=== PATIENT | female | born 1975 | race Caucasian/White ===

== ENCOUNTER 2022-07-05 09:45 | Outpatient (REF) | payer OTHER, SELFPAY ==
--- NOTE | ~2022-07-05 | US_ITS ---
EXAMINATION: US VENOUS ULTRASOUND WITH DOPPLER LOWER EXTREMITY, LEFT CLINICAL INFORMATION: Left leg pain. COMPARISON: None TECHNIQUE: Ultrasound of the deep veins is performed from the hip to the calf with compression sonography and color and pulse Doppler assessment. Spectral analysis with color-flow imaging is performed. FINDINGS: There is normal venous compression and respiratory variation and augmented flow. The visualized common femoral vein, superficial femoral vein, profunda femoral vein, popliteal vein, and the trifurcation region shows no evidence of deep venous thrombosis. No left popliteal cyst. The subcutaneous soft tissues are unremarkable. If the patient's symptoms persist, followup ultrasound in 5 days 7 days might be of value to exclude proximal propagation from a non-visualized calf vein. US/US venous duplex LE LT IMPRESSION: No evidence for deep venous thrombosis in the visualized veins of the left lower extremity.
[2022-07-05 10:42] LABS: MANUAL DIFF FLAG NO
[2022-07-05 11:47] LABS: Alanine Aminotransferase 10 U/L (0-31); Albumin Level 4.4 g/dL (3.5-5.0); Alkaline Phosphatase 62 U/L (39-117); Anion Gap 15 (12-20); Aspartate Amino Transferase 15 U/L (5-31); Basophils Absolute Auto 0.1 X10*3/uL (0.0-0.2); Basophils Percent Auto 0.6 % (0-2); Bilirubin Total 1.4 mg/dL (0.0-1.0); Blood Urea Nitrogen 12 mg/dL (9-16); Calcium 9.2 mg/dL (8.4-10.2); Carbon Dioxide 26 mmol/L (22-29); Chloride 104 mmol/L (96-108); Cholesterol 231 mg/dL; Eosinophils Absolute Auto 0.1 X10*3/uL (0.0-0.4); Estimated Glomerular Filt Rate > 60; Glucose Fasting 88 mg/dL (60-99); HDL Cholesterol 91 mg/dL; Hematocrit 42.2 % (37.0-47.0); Hemoglobin 13.8 g/dl (12.0-16.0); Imm Gran Abs Auto 0.01 X10*3/uL (0.00-0.03); Imm Gran Pct Auto 0.1 % (0.0-0.4); LDL Cholesterol Calculated 126 mg/dl; Lymphocytes Absolute Auto 1.1 X10*3/uL (1.2-4.9); Lymphocytes Percent Auto 13.4 % (20-40); Mean Corpuscular HGB Conc 32.7 g/dl (31.0-35.0); Mean Corpuscular Hemoglobin 29.1 pg (27.0-33.0); Mean Corpuscular Volume 88.8 fL (80.0-98.0); Mean Platelet Volume 10.5 fL (9.4-12.3); Monocytes Absolute Auto 0.4 X10*3/uL (0.1-1.2); Monocytes Percent Auto 4.7 % (2-11); Neutrophils Absolute Auto 6.4 x10*3/uL (2.0-8.3); Neutrophils Percent Auto 80.2 % (45-73); Platelet Count 368 X10*3/uL (160-400); Potassium 4.2 mmol/L (3.3-5.1); Red Blood Count 4.75 X10*6/uL (4.20-5.50); Red Cell Distribution Width 12.6 % (11.0-16.0); Sodium 141 mmol/L (135-145); Total Protein 7.2 g/dL (6.5-8.0); Triglycerides 73 mg/dL
[2022-07-05 11:57] LABS: Thyroid Stimulating Hormone 1.63 uIU/mL (0.32-4.0); Vitamin D 25-OH Total 23.1 ng/mL (>30)
[2022-07-05 12:46] LABS: Folate 14.5 ng/mL (> or = 4.0); Vitamin B12 407 pg/mL (200-900)
== END 2022-07-05 09:46 | disposition home or self-care (01) ==
LOC: HO.US 09:45
PROVIDERS: PCP Internal Medicine; Visit Provider Internal Medicine
DX: Z00.00 Encounter for general adult medical examination without abnormal findings (principal); M79.605 Pain in left leg; E78.5 Hyperlipidemia, unspecified; E66.9 Obesity, unspecified; Z68.31 Body mass index [BMI] 31.0-31.9, adult; E55.9 Vitamin D deficiency, unspecified; R53.83 Other fatigue
CPT/HCPCS: 36415; 80053; 80061; 82306; 82607; 82746; 84443; 85025; 93971

== ENCOUNTER 2022-07-29 08:42 | Outpatient (REF) | payer OTHER, SELFPAY ==
--- NOTE | ~2022-07-29 | MM_ITS ---
EXAMINATION: MM SCREENING DIGITAL BREAST TOMOSYNTHESIS, BILATERAL CLINICAL INFORMATION: Screening. Asymptomatic. COMPARISON: Mammography: 07/13/2021 ([facility]). TECHNIQUE: Digital breast tomosynthesis is performed in both the craniocaudal and mediolateral oblique views along with computer-aided detection (CAD). Synthesized 2D images are generated from the tomosynthesis. FINDINGS: There are scattered areas of fibroglandular density (ACR BI-RADS breast composition Category b). There are no significant masses, abnormal calcifications, or other abnormalities. Parenchymal pattern is similar to prior outside exam. The axilla and skin contours are unremarkable. MM/MM tomosynthesis screening BI IMPRESSION: No mammographic evidence of malignancy. ASSESSMENT: BI-RADS 1: Negative RECOMMENDATION: Routine annual mammography screening. This patient's information was entered into a reminder system with a target due date for their next mammogram.
== END 2022-07-29 08:43 | disposition home or self-care (01) ==
LOC: HO.MAMMO 08:42
PROVIDERS: Visit Provider Internal Medicine
DX: Z12.31 Encounter for screening mammogram for malignant neoplasm of breast (principal)
CPT/HCPCS: 77063; 77067

== ENCOUNTER 2022-10-27 10:50 | Outpatient (REF) | payer OTHER, SELFPAY ==
--- NOTE | ~2022-10-27 | XR_ITS ---
EXAMINATION: XR CHEST CLINICAL INFORMATION: Post COVID 19. COMPARISON: None TECHNIQUE: 2 views of the chest were obtained. FINDINGS: No significant abnormality is noted involving the heart, lungs, mediastinum, bony thorax or soft tissues. XR/XR chest 2V IMPRESSION: No acute cardiopulmonary process.
== END 2022-10-27 10:51 | disposition home or self-care (01) ==
LOC: HO.HMGCX 10:50
PROVIDERS: PCP Internal Medicine; Visit Provider Internal Medicine
DX: R05.9 Cough, unspecified (principal); R06.02 Shortness of breath; U09.9 Post COVID-19 condition, unspecified
CPT/HCPCS: 71046

== ENCOUNTER 2023-01-24 10:25 | Outpatient (REF) | payer OTHER, SELFPAY ==
[2023-01-25 23:33] LABS: HPV mRNA E6/E7 rflx Not Detected (Not Detected)
== END 2023-01-24 10:26 | disposition home or self-care (01) ==
LOC: HO.LNP 10:25
PROVIDERS: PCP Internal Medicine; Visit Provider Advanced Practice Midwife
DX: Z01.419 Encounter for gynecological examination (general) (routine) without abnormal findings (principal); Z11.51 Encounter for screening for human papillomavirus (HPV); R03.0 Elevated blood-pressure reading, without diagnosis of hypertension
CPT/HCPCS: 87624; 88142

== ENCOUNTER 2023-02-01 15:54 | Outpatient (REF) | payer OTHER, SELFPAY ==
--- NOTE | ~2023-02-01 | US_ITS ---
EXAMINATION: US PELVIS CLINICAL INFORMATION: Hypertrophy of the uterus. 47-year-old, LMP 01/20/2023 COMPARISON: None available. TECHNIQUE: Ultrasound of the pelvis is performed using both transabdominal and transvaginal transducers along with Doppler. Transvaginal imaging is performed due to inadequate visualization transabdominally. FINDINGS: Uterus: The uterus is anteverted and measures 14.0 x 8.0 x 7.8 cm. The double wall endometrial thickness is 0.4 mm. The uterus is smooth in contour and has normal myometrial echogenicity. Multiple uterine fibroids are noted. A posterior uterine body intramural fibroid measures up to 5.5 cm. A posterior intramural fibroid measures up to 2.8 cm. And a third anterior intramural fibroid measures up to 2.0 cm. Adnexa: Right ovary measures 4.0 x 2.5 x 2.8 cm. There is a right intraovarian cyst with internal septations, avascular measuring 2.0 x 1.6 x 1.6 cm. Left ovary is not visualized. No large left adnexal mass. US/US pelvic and transvaginal IMPRESSION: * Multiple uterine fibroids measuring up to 5.5 cm. * Right intraovarian complex cyst measures 2.0 cm. Recommend follow-up ultrasound in 6-12 weeks to assess for resolution.
== END 2023-02-01 15:55 | disposition home or self-care (01) ==
LOC: HO.US 15:54
PROVIDERS: PCP Internal Medicine; Visit Provider Advanced Practice Midwife
DX: N85.2 Hypertrophy of uterus (principal)
CPT/HCPCS: 76830; 76856

== ENCOUNTER → 2023-03-09 11:20 | Outpatient (BNVA) | payer OTHER, SELFPAY | PROVIDERS: PCP Student in an Organized Health Care Education/Training Program; Visit Provider Advanced Practice Midwife ==

== ENCOUNTER 2023-03-24 07:00 | Outpatient (RCR) | payer OTHER, SELFPAY ==
--- NOTE | 2023-03-17 09:15 | MHC.PT.EP ---
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 OBJECTIVE FINDINGS: DECR ELBOW/ WRIST AROM Lt > Rt, STRENGTH DEFICITS IN POST RC/ SCAP/ Lt ELBOW FLEXORS, DECR POSTURAL AWARENESS W (+) MILD Rt THOR Lt LUMBAR SCOLIOSIS, SIGNIF TISSUE TENSION IN HER UT/ LUMBAR PS/ ELBOW EXT WAD, (+) ADSON'S TEST Lt UE, AND FLUCTUATING PAIN IN HER Lt BICEP/ FOREARM SOFT TISSUES. FUNCTIONALLY, THE Pt NOTES SHE CAN PERFORM REQ TASKS, BUT HAS SXS AND PAIN IN HER Lt ELBOW AREA-> ESPEC W LIFTING AND CARRYING OBJECTS. SHE DENIES SENSORY DEFICITS, ALTHOUGH ? A TOS EFFECT DUE TO SOFT TISSUE TIGHTNESS. THE Pt WOULD BENEFIT FROM PT TO ADDRESS POSTURE, SOFT TISSUE RESTRICTION, Jt HYPOMOBILITY, AND STRENGTH DEFICITS. Frequency and Duration: The patient will be seen 2 x WK x 5 WKS Short Term Goals: *Pt INDEP W SELF-CORRECTION OF POSTURE *INCREASE AROM LEFT ELBOW EXTENSION *REDUCE TISSUE TENSION IN DORA UT/ LB/ PECT/ELBOW *DECREASE Lt UE/ ELBOW REGION PAIN TO A 2-3/10 Senior Living Goals: *Pt INDEP W HEP PROGR AND SELF-SX MGMT STRATEGIES FOR Lt UE *Pt ABLE TO PERFORM REG ADLs / WORK TASKS , EVIDENT W IMPROVED SPADI (64/130 AT EVAL) *Pt ACHIEVE WFL STRENGTH AND AROM IN Lt UE/ ELBOW/ WRIST COMPLEX Treatment Plan: Modalities to reduce pain, spasms and effusion. Manual therapy to restore motion and function. Therapeutic exercise to improve strength and flexibility. Neuromuscular re-education for posture and balance. Therapeutic activities to return to functional activities of daily living. Electronically signed by: ASHLEY RUIZ PT Please sign and return to therapist. Thank you for your referral.
--- NOTE | 2023-05-12 07:08 | MHC.PT.DC ---
[facility] [place] Office [place] Office [place] Office [address] Shilo Mann [address] [phone] F: [phone] F: [phone] F: [phone] F: [phone] Physical Therapy Discharge Report Diagnosis: LEFT ARM PAIN Date of Surgery: Date of Evaluation: 03/17/23 Date of Discharge: 05/12/23 Treatments to Date: 3 Cancellations to Date: 4 No Shows to Date: 0 Discharge Status: Improved Function Independent with HEP Patient Elected to Stop Visit Non-compliance Discharge Summary: THE Pt WAS DEMON PROGRESS IN PT, MORE LOCALIZED SXS IN HER Lt UE, INCR AWARENESS REGARDING UT COMP AND INCR ACTIV MID/LOWER TRAP. SHE WAS CHALLENGED W SCAP RETRACTION COMPONENT OF STABILIZATION/ STRENGTHENING EXER- SHE BENEFITTED FROM MIRROR FEEDBACK. SHE HAD RESIDUAL DEFICITS W Lt TERMINAL ELBOW EXT. THE Pt CANC HER LAST FEW SCHED PT APPTS AND, THEREFORE, A FORMAL REASSESSMENT WAS NOT PERFORMED. Electronically signed by: ASHLEY RUIZ,PT Please sign and return to therapist. Thank you for your referral.
== END 2023-05-12 07:09 | disposition home or self-care (01) ==
LOC: HO.PT 07:00
PROVIDERS: PCP Student in an Organized Health Care Education/Training Program; Visit Provider Internal Medicine
DX: M79.602 Pain in left arm (principal)
CPT/HCPCS: 97110; 97140; 97162

== ENCOUNTER 2023-04-28 10:41 | Outpatient (REF) | payer OTHER, SELFPAY ==
--- NOTE | ~2023-04-28 | US_ITS ---
EXAMINATION: US PELVIS AND TRANSVAGINAL CLINICAL INFORMATION: Hypertrophy of uterus. Last menstrual period 2 weeks ago. COMPARISON: 02/01/2023. TECHNIQUE: Ultrasound of the pelvis is performed using both transabdominal and transvaginal transducers along with Doppler. Transvaginal imaging is performed due to inadequate visualization transabdominally. Limited visualization due to bowel gas, heterogeneous fibroid uterus and uterine length. FINDINGS: The uterus is heterogeneous, anteverted and measures 13.6 x 7.7 x 7.8 cm, volume 427.2 mL. 6.9 x 6.0 x 6.8 cm fibroid. Previous exam demonstrated 5.3 x 4.9 x 5.5 cm fibroid. Previously identified 2.8 cm fibroid is not visualized today. Possible 1.7 x 2.0 x 1.1 cm left fibroid. Limited visualization due to bowel gas, heterogeneous fibroid uterus and uterine length. Endometrial thickness is 1.1 cm on limited images. Small amount of fluid within the cervix. Nabothian cysts present. Left ovary not visualized. The right ovary measures 3.8 x 2.3 x 1.6 cm, volume 7.3 mL and is difficult to characterize due to limited visualization. 1.7 x 1.1 x 1.4 cm right ovarian cyst is likely physiologic. Previous exam demonstrated a 2.0 x 1.6 x 1.6 cm right ovarian complex cyst with septations. There is no indication for followup imaging. Prominent pelvic vasculature raises the question of pelvic congestion syndrome. No significant free fluid in the pelvis. US/US pelvic and transvaginal IMPRESSION: 1. Enlarged fibroid uterus. 2. Endometrial thickness is 1.1 cm on limited images. 3. Prominent pelvic vasculature raises the question of pelvic congestion syndrome. 4. Right ovarian 1.7 cm cyst is likely simple, likely physiologic. There is no indication for follow-up imaging.
== END 2023-04-28 10:42 | disposition home or self-care (01) ==
LOC: HO.US 10:41
PROVIDERS: PCP Internal Medicine; Visit Provider Advanced Practice Midwife
DX: D21.9 Benign neoplasm of connective and other soft tissue, unspecified (principal); N85.2 Hypertrophy of uterus; N83.299 Other ovarian cyst, unspecified side
CPT/HCPCS: 76830; 76856

== ENCOUNTER 2023-07-20 07:23 | Outpatient (AMB) | payer OTHER, SELFPAY ==
[2023-07-20 07:36] VITALS: BP 130/82; PULSE 62; O2SAT 99; BMI 31.1
--- NOTE | 2023-07-20 07:36 | A.OFFPC_ITS ---
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 Accompanied by: Self / Same As Patient Allergies azithromycin Allergy (Mild, Verified 07/20/23 07:38) Hives Penicillins Allergy (Mild, Verified 07/20/23 07:38) Hives Medication List - Last Reconciled 07/20/23 by Zulema Puentes MD cholecalciferol (vitamin D3) 25 mcg PO DAILY 90 days lisinopril 10 mg PO DAILY 90 days Tobacco use date assessed: 11/08/22 Dental Screening Dental Screen Date: 07/20/23 Did you have a dental visit in the last 12 months?: Yes Did you have a dental problem in the last 6 months where you did not have access to dental care?: No Was dental information given to patient?: Patient has dentist HPI HPI Comments History of Present Illness Details This is a 47-year-old female that comes for her physical exam. Last mammogram was July 2022 and was normal. Last Pap smear was 2022 and was normal. Last colonoscopy was over 5 years ago and had polyps that needed to be recheck in 5 years. Will be referred to Gastroenterology for this matter. Colonoscopy was done in [place] therefore we do not have the records. No chest pain or shortness of breath. [facility] Surgical History No pertinent past surgical history Family History Mother Lung cancer Father Hypertension Maternal Aunt Breast cancer, Onset Age: 49 Paternal Grandfather Lung cancer Social History Housing: House Alcohol intake: former Patient Tobacco Use Status: Former Tobacco user Tobacco use type: Cigarette e-Cigarette/Vaping Use: Never Used Second Hand Smoke Exposure: No service: No Current occupational status: employed Current occupational exposures/hazards: No Cognitive needs: No Hearing needs: No Vision needs: No Female Reproductive History Menstrual Age of Menarche: 11 Questionnaire Thrive Questionnaire Date Thrive assessed: 11/08/22 ROEL-7 AMB Questionnaire ROEL-7 Date ROEL - 7 assessed: 11/08/22 Source: Developed by Drs. Arik Marcano, Abeba Greene, Richard Power and colleagues, with an educational dian from [employer] Review of Systems Const All systems reviewed & are unremarkable except as noted in HPI and below Eyes Reports no additional complaints, Denies change in vision and Denies other visual disturbances Card Denies chest pain at rest, Denies chest pain with activity, Denies edema, Denies irregular heart rhythm, Denies claudication, Denies dyspnea, Denies dyspnea on exertion, Denies orthopnea, Denies paroxysmal nocturnal dyspnea and Denies slow heart rate Resp Denies cough, Denies dyspnea and Denies dyspnea on exertion GI Denies abdominal pain, Denies change in bowel habits, Denies excessive flatus, Denies nausea and Denies vomiting Denies urinary incontinence, Denies urinary hesitancy and Denies urinary urgency Musc Denies abnormal gait, Denies atrophy, Denies deformity and Denies limited range of motion Skin/Breast Denies bleeding lesions, Denies changing lesions and Denies rash Neuro Denies abnormal gait and Denies lack of coordination Physical exam (Primary Care) Vital Signs: Last Vital Signs Pulse 62 07/20/23 07:36 BP 130/82 07/20/23 07:36 Pulse Ox 99 07/20/23 07:36 Oxygen Delivery Method Room Air 07/20/23 07:36 BMI result Body Mass Index 31.1 Tobacco/Smoking Status: Tobacco use Status Tobacco use date assessed 11/08/22 07/20/23 07:41 Patient Tobacco Use Status Former Tobacco user 07/20/23 07:41 Tobacco use type Cigarette 07/20/23 07:41 e-Cigarette/Vaping Use Never Used 07/20/23 07:41 Thrive Assessment: Date of Thrive Assessment Date Thrive assessed 11/08/22 07/20/23 07:41 Const Orientation/consciousness: patient oriented x3 HENMT Head: Yes normal to inspection, Yes normocephalic and Yes atraumatic Ears: external ears normal Eyes General: appearance normal, both eyes and all related structures Eyelids: Yes eyelids normal Conjunctivae: conjunctivae normal Neck Neck: Yes normal visual inspection and Yes supple Resp Effort & Inspection: normal respiratory effort Auscultation: clear to auscultation bilaterally Cardio Jugular venous distension: no JVD Rate: regular rate Rhythm: regular rhythm Heart sounds: S1 normal heart sound present and S2 normal heart sound present GI Inspection: Yes normal to inspection Palpation (GI): Soft to palpation and nontender Auscultation: normal bowel sounds Skin General skin exam: no rashes or lesions noted Neuro General: patient oriented x3 and no focal motor deficits Extrem General: Yes full ROM Psych Appearance: grossly normal Office Procedures Flu Questionnaire Does the patient have a severe egg allergy?: No Immunizations flu vacc [id number] 6mos up(PF) 60 mcg(15 mcgx4)/0.5 mL IM syringe Performing Provider: Zulema Puentes MD [facility] Documented (not given) by: SYED Minor on 07/20/23 07:42 Reason Not Given: Patient Refused Assessment and Plan Assessment & Plan (1) Physical exam: Code(s): Z00.00 - Encounter for general adult medical examination without abnormal findings Plan: Repeat in a year. Orders: Orders Influenza [id number] Immunization Today Z23 - Encounter for immunization Lipid Panel Today Z00.00 - Encounter for general adult medical examination without abnormal findings Thyroid Stimulating Hormone Today E66.9 - Obesity, unspecified, Z68.31 - Body mass index [BMI] 31.0-31.9, adult Complete Blood Count Auto Diff Today E66.9 - Obesity, unspecified, Z68.31 - Body mass index [BMI] 31.0-31.9, adult Vitamin D 25-OH Total Today E55.9 - Vitamin D deficiency, unspecified Vitamin B12 and Folate Today E53.8 - Deficiency of other specified B group vitamins Comprehensive [place]. Panel Fast Today Z00.00 - Encounter for general adult medical examination without abnormal findings Referrals Gastroenterology Referral K63.5 - Polyp of colon Coding Level of Care Code Est Pt Prev Care 40-64y(90776) Diagnoses Physical exam Z00.00 Time Spent (min) 32
== END 2023-07-20 08:05 | disposition home or self-care (01) ==
PROVIDERS: Visit Provider Internal Medicine
DX: Z00.00 Encounter for general adult medical examination without abnormal findings (principal)
CPT/HCPCS: 99396

== ENCOUNTER 2023-07-22 07:14 | Outpatient (REF) | payer OTHER, SELFPAY ==
[2023-07-22 07:30] LABS: MANUAL DIFF FLAG NO
[2023-07-22 07:35] LABS: Basophils Absolute Auto 0.1 X10*3/uL (0.0-0.2); Eosinophils Absolute Auto 0.2 X10*3/uL (0.0-0.4); Eosinophils Percent Auto 2.4 % (0-4); Hematocrit 38.5 % (37.0-47.0); Hemoglobin 12.3 g/dl (12.0-16.0); Imm Gran Abs Auto 0.02 X10*3/uL (0.00-0.03); Imm Gran Pct Auto 0.3 % (0.0-0.4); Lymphocytes Absolute Auto 1.4 X10*3/uL (1.2-4.9); Lymphocytes Percent Auto 20.2 % (20-40); Mean Corpuscular HGB Conc 31.9 g/dl (31.0-35.0); Mean Corpuscular Hemoglobin 27.5 pg (27.0-33.0); Mean Corpuscular Volume 86.1 fL (80.0-98.0); Mean Platelet Volume 10.2 fL (9.4-12.3); Monocytes Absolute Auto 0.5 X10*3/uL (0.1-1.2); Monocytes Percent Auto 6.9 % (2-11); Neutrophils Absolute Auto 4.7 x10*3/uL (2.0-8.3); Neutrophils Percent Auto 69.2 % (45-73); Platelet Count 334 X10*3/uL (160-400); Red Blood Count 4.47 X10*6/uL (4.20-5.50); Red Cell Distribution Width 13.2 % (11.0-16.0); White Blood Count 6.8 X10*3/uL (4.8-10.8)
[2023-07-22 08:13] LABS: Alanine Aminotransferase 12 U/L (0-31); Alkaline Phosphatase 49 U/L (39-117); Anion Gap 10 (12-20); Aspartate Amino Transferase 19 U/L (5-31); Bilirubin Total 0.9 mg/dL (0.0-1.0); Blood Urea Nitrogen 15 mg/dL (9-16); Calcium 9.2 mg/dL (8.4-10.2); Carbon Dioxide 29 mmol/L (22-29); Chloride 105 mmol/L (96-108); Cholesterol 200 mg/dL (<200); Estimated Glomerular Filt Rate > 60; Glucose Fasting 92 mg/dL (60-99); HDL Cholesterol 72 mg/dL (>40); LDL Cholesterol Calculated 117 mg/dL (<100); Potassium 4.2 mmol/L (3.3-5.1); Sodium 140 mmol/L (135-145); Total Protein 6.9 g/dL (6.5-8.0); Triglycerides 56 mg/dL (<150)
[2023-07-22 08:28] LABS: Vitamin D 25-OH Total 30.2 ng/mL (>30)
[2023-07-22 08:29] LABS: Thyroid Stimulating Hormone 1.59 uIU/mL (0.32-4.0)
[2023-07-22 08:42] LABS: Folate 8.6 ng/mL (> or = 4.0); Vitamin B12 503 pg/mL (200-900)
== END 2023-07-22 07:15 | disposition home or self-care (01) ==
LOC: HO.LAB 07:14
PROVIDERS: PCP Internal Medicine; Visit Provider Internal Medicine
DX: Z00.00 Encounter for general adult medical examination without abnormal findings (principal); E66.9 Obesity, unspecified; Z68.31 Body mass index [BMI] 31.0-31.9, adult; E55.9 Vitamin D deficiency, unspecified; E53.8 Deficiency of other specified B group vitamins
CPT/HCPCS: 36415; 80053; 80061; 82306; 82607; 82746; 84443; 85025

== ENCOUNTER 2023-08-04 09:25 | Outpatient (REF) | payer OTHER, SELFPAY ==
--- NOTE | ~2023-08-04 | MM_ITS ---
EXAMINATION: MM SCREENING DIGITAL BREAST TOMOSYNTHESIS, BILATERAL CLINICAL INFORMATION: Screening. Asymptomatic. COMPARISON: Mammography: This study is compared with prior exams dating back to 2020. TECHNIQUE: Digital breast tomosynthesis is performed in both the craniocaudal and mediolateral oblique views along with computer-aided detection (CAD). Synthesized 2D images are generated from the tomosynthesis. FINDINGS: The breasts are almost entirely fatty (ACR BI-RADS breast composition Category a). There are no significant masses, abnormal calcifications, or other abnormalities. MM/MM tomosynthesis screening BI IMPRESSION: No mammographic evidence of malignancy. ASSESSMENT: BI-RADS BI-RADS 1 - Negative RECOMMENDATION: Routine annual mammography screening. 1 year F/U This examination should not preclude the clinical evaluation of a suspicious palpable abnormality. This patient's information was entered into a reminder system with a target due date for their next mammogram.
== END 2023-08-04 09:26 | disposition home or self-care (01) ==
LOC: HO.MAMMO 09:25
PROVIDERS: PCP Internal Medicine; Visit Provider Internal Medicine
DX: Z12.31 Encounter for screening mammogram for malignant neoplasm of breast (principal)
CPT/HCPCS: 77063; 77067

== ENCOUNTER → 2023-08-04 09:30 | Outpatient (BNV) | payer OTHER, SELFPAY | PROVIDERS: PCP Internal Medicine; Visit Provider Radiology Diagnostic Radiology | DX: Z12.31 Encounter for screening mammogram for malignant neoplasm of breast (principal) | CPT/HCPCS: 77063; 77067 ==

== ENCOUNTER 2023-08-04 10:20 | Outpatient (AMB) | payer OTHER, SELFPAY ==
--- NOTE | 2023-08-04 10:16 | A.OFFPC_ITS ---
Intake Visit Reasons: coughing wheeziing shortness of breath Intake Note: Patient is here today for heavy chest with cough, wheezing, and shortness of breath on going for two weeks. History of Asthma. Try OTC not helping, almost done with antibiotic prescribed by Dr Snider Health Care Coach Required: No Vp Of Customer Experience Strategy: Not Required per policy Accompanied by: Self / Same As Patient Allergies azithromycin Allergy (Mild, Verified 08/04/23 10:19) Hives Penicillins Allergy (Mild, Verified 08/04/23 10:19) Hives Tobacco use date assessed: 08/04/23 HPI HPI Comments History of Present Illness Details Female past medical history significant for asthma, hypertension and hypercholesteremia. Patient , patient presents today for a telehealth states she developed upper respiratory symptoms starting last Monday states she had head cold nasal congestion chest congestion, sinus pain and pressure. Denies fever, chills. Reports shortness of breath Patient states she spoke with Dr. Snider and was placed on doxycycline for this. Patient states she continues to ongoing shortness of breath and wheezing and cough. Patient states she has swabbed herself multiple times for COVID and have been negative. Patient reports using rescue inhaler q6hrs since shes been sick. Denies any recent sick contacts. States she has been on prednisone in the past for asthma exacerbations related to upper respiratory infections with improvement. [facility] Medical History (Updated 08/04/23 @ 10:28 by DARNELL Rothman) Asthma Surgical History No pertinent past surgical history Family History Mother Lung cancer Father Hypertension Maternal Aunt Breast cancer, Onset Age: 49 Paternal Grandfather Lung cancer Social History Housing: House Alcohol intake: former Patient Tobacco Use Status: Former Tobacco user Tobacco use type: Cigarette e-Cigarette/Vaping Use: Never Used Second Hand Smoke Exposure: No service: No Current occupational status: employed Current occupational exposures/hazards: No Cognitive needs: No Hearing needs: No Vision needs: No Female Reproductive History Menstrual Age of Menarche: 11 Questionnaire Thrive Questionnaire Date Thrive assessed: 11/08/22 ROEL-7 AMB Questionnaire ROEL-7 Date ROEL - 7 assessed: 11/08/22 Source: Developed by Drs. Arik Marcano, Abeba Greene, Richard Power and colleagues, with an educational dian from [employer]. Review of Systems Const Denies chills and Denies fever(s) ENT Reports nasal congestion, Reports sinus pain and Reports sinus pressure Card Denies chest pain and Reports dyspnea Resp Reports chest congestion, Reports cough, Reports dyspnea and Reports wheezing GI Reports no additional complaints Reports no additional complaints Aller/Immun Reports wheezing Physical exam (Primary Care) Vital Signs: unable to complete telehealth exam Tobacco/Smoking Status: Tobacco use Status Tobacco use date assessed 08/04/23 08/04/23 10:20 Patient Tobacco Use Status Former Tobacco user 08/04/23 10:20 Tobacco use type Cigarette 08/04/23 10:20 e-Cigarette/Vaping Use Never Used 08/04/23 10:20 Thrive Assessment: Date of Thrive Assessment Date Thrive assessed 11/08/22 08/04/23 10:20 Telehealth Telehealth Location of provider rendering services: practice address Location of patient: address on file Patient Identification confirmed using: Name, : Yes Telehealth method: voice only Patient verbally consented to treatment: Yes Patient verbally consented to billing insurance company: Yes Patient informed of any privacy concerns related to visit: Yes Minutes spent on Phone/Video with Pt.: 5 Assessment and Plan Assessment & Plan (1) Asthma exacerbation: Code(s): J45.901 - Unspecified asthma with (acute) exacerbation Plan: prednisone 40mg x 5 days sent to patient pharmacy. Patient advised to complete previously prescribed antibiotic. Cotninue to use albuterol as needed. (2) Shortness of breath: Code(s): R06.02 - Shortness of breath Plan: Patient advised if she continues to have persistent SOB and no improvement on prednisone to please get CXR obtained, order entered. Sings and symptoms reviewed with patient when to seek medical attention. (3) Cough: Code(s): R05.9 - Cough, unspecified Plan: benzontate tid prn sent to patients pharmacy. Ensure to drink plent of fluids and rest. Orders: Orders XR chest 2V Today R05.9 - Cough, unspecified, R06.02 - Shortness of breath Medications: New benzonatate 100 mg PO TID PRN 20 caps 0RF cough prednisone 40 mg (2 x 20 mg) PO DAILY 10 tabs 0RF J45.901 - Unspecified asthma with (acute) exacerbation Coding Level of Care Code Tele Est Pt Level 3 (10425) Diagnoses Asthma exacerbation J45.901 Shortness of breath R06.02 Cough R05.9
== END 2023-08-04 10:58 | disposition home or self-care (01) ==
LOC: HO.HMGH 10:20
PROVIDERS: PCP Internal Medicine; Visit Provider Nurse Practitioner Family
DX: J45.901 Unspecified asthma with (acute) exacerbation (principal); R06.02 Shortness of breath; R05.9 Cough, unspecified
CPT/HCPCS: 99213

== ENCOUNTER 2023-08-28 07:49 | Outpatient (AMB) | payer OTHER, SELFPAY ==
[2023-08-28 08:09] VITALS: BP 124/78; PULSE 80; O2SAT 98; BMI 30.9
--- NOTE | 2023-08-28 08:09 | A.OFFPC_ITS ---
Vital Signs 08/28/23 08:09 Height 5 ft 2 in Weight 169 lb BMI 30.9 BP 124/78 Blood Pressure Location Lt brachial Position Sitting Pulse 80 Pulse Source Pulse Oximeter Pulse Oximetry (%) 98 Oxygen Delivery Method Room Air Intake Visit Reasons: persistent dry cough Intake Note: Patient never took the benzonatate. Assessment Manager Required: No Accompanied by: Self / Same As Patient Allergies azithromycin Allergy (Mild, Verified 08/28/23 08:15) Hives Penicillins Allergy (Mild, Verified 08/28/23 08:15) Hives Medication List - Last Reconciled 08/28/23 by Zulema Puentes MD amlodipine 2.5 mg PO DAILY 90 days cholecalciferol (vitamin D3) 25 mcg PO DAILY 90 days Tobacco use date assessed: 08/04/23 Dental Screening Dental Screen Date: 08/28/23 Did you have a dental visit in the last 12 months?: Yes Did you have a dental problem in the last 6 months where you did not have access to dental care?: No Was dental information given to patient?: Patient has dentist HPI HPI Comments History of Present Illness Details This is a 48-year-old female with hypertension, pure hypercholesterolemia and low vitamin-D that complains of a persistent dry cough that started over 3 weeks ago. She said she had a cold with productive cough that transformed to a dry cough. No fever or sore throat. Chest x-ray was done as [facility] urgent care and was negative. She was on lisinopril which was changed to amlodipine about a week ago. She has not started amlodipine because her blood pressure has been within normal limits. She said that the dry cough has improved. Cholesterol improved with low-cholesterol diet. Vitamin-D normal on supplements. No chest pain or shortness of breath. [facility] Medical History (Updated 08/28/23 @ 08:49 by Zulema Puentes MD) Asthma Surgical History No pertinent past surgical history Family History Mother Lung cancer Father Hypertension Maternal Aunt Breast cancer, Onset Age: 49 Paternal Grandfather Lung cancer Social History Housing: House Alcohol intake: former Patient Tobacco Use Status: Former Tobacco user Tobacco use type: Cigarette e-Cigarette/Vaping Use: Never Used Second Hand Smoke Exposure: No service: No Current occupational status: employed Current occupational exposures/hazards: No Cognitive needs: No Hearing needs: No Vision needs: No Female Reproductive History Menstrual Age of Menarche: 11 Questionnaire PHQ-9 Over the last 2 weeks, how often have you been bothered by any of the following problems? 1. Little interest or pleasure in doing things: not at all 2. Feeling down, depressed, or hopeless: not at all 3. Trouble falling or staying asleep, or sleeping too much: not at all 4. Feeling tired or having little energy: not at all 5. Poor appetite or overeating: not at all 6. Feeling bad about yourself - or that you are a failure or have let yourself or your family down: not at all 7. Trouble concentrating on things, such as reading the newspaper or watching television: not at all 8. Moving or speaking so slowly that other people could have noticed. Or the opposite - being so fidgety or restless that you have been moving around a lot more than usual: not at all 9. Thoughts that you would be better off or of hurting yourself in some way: not at all Total score: 0 Depression Screening Interpretation: Negative Depression Screening Done: Yes 22253 - PHQ-9 Billing: Yes Source: Developed by Drs. Arik Marcano, Richard Zavala and colleagues, with an educational dian from [employer]. Thrive Questionnaire Date Thrive assessed: 11/08/22 AUDIT C Alcohol Use Questionnaire (AUDIT-C) 1. How often do you have a drink containing alcohol?: Never Total Score: 0 ROEL-7 AMB Questionnaire ROEL-7 Date ROEL - 7 assessed: 11/08/22 Source: Developed by Drs. Arik Marcano, Richard Zavala and colleagues, with an educational dian from [employer]. Review of Systems Const All systems reviewed & are unremarkable except as noted in HPI and below Eyes Reports no additional complaints, Denies change in vision and Denies other visual disturbances Card Denies chest pain at rest, Denies chest pain with activity, Denies edema, Denies irregular heart rhythm, Denies claudication, Denies dyspnea, Denies dyspnea on exertion, Denies orthopnea, Denies paroxysmal nocturnal dyspnea and Denies slow heart rate Resp Denies cough, Denies dyspnea and Denies dyspnea on exertion GI Denies abdominal pain, Denies change in bowel habits, Denies excessive flatus, Denies nausea and Denies vomiting Denies urinary incontinence, Denies urinary hesitancy and Denies urinary urgency Musc Denies abnormal gait, Denies atrophy, Denies deformity and Denies limited range of motion Skin/Breast Denies bleeding lesions, Denies changing lesions and Denies rash Neuro Denies abnormal gait and Denies lack of coordination Physical exam (Primary Care) Vital Signs: Last Vital Signs Pulse 80 08/28/23 08:09 BP 124/78 08/28/23 08:09 Pulse Ox 98 08/28/23 08:09 Oxygen Delivery Method Room Air 08/28/23 08:09 BMI result Body Mass Index 30.9 Tobacco/Smoking Status: Tobacco use Status Tobacco use date assessed 08/04/23 08/28/23 08:14 Patient Tobacco Use Status Former Tobacco user 08/28/23 08:14 Tobacco use type Cigarette 08/28/23 08:14 e-Cigarette/Vaping Use Never Used 08/28/23 08:14 PHQ-9: PHQ-9 Score PHQ-9: Total score 0 08/28/23 08:21 Depression Screening Interpretation: Negative Thrive Assessment: Date of Thrive Assessment Date Thrive assessed 11/08/22 08/28/23 08:14 Eyes General: appearance normal, both eyes and all related structures Eyelids: Yes eyelids normal Conjunctivae: conjunctivae normal Neck Neck: Yes normal visual inspection and Yes supple Resp Effort & Inspection: normal respiratory effort Auscultation: clear to auscultation bilaterally Cardio Jugular venous distension: no JVD Rate: regular rate Rhythm: regular rhythm Heart sounds: S1 normal heart sound present and S2 normal heart sound present GI Inspection: Yes normal to inspection Palpation (GI): Soft to palpation and nontender Auscultation: normal bowel sounds Assessment and Plan Assessment & Plan (1) Essential hypertension: Code(s): I10 - Essential (primary) hypertension Plan: Continue blood pressure monitoring. If blood pressure is over 130/80 then start amlodipine. Blood pressure goal is equal or less than 130/80. (2) Hypovitaminosis D: Code(s): E55.9 - Vitamin D deficiency, unspecified Plan: Continue vitamin-D supplements. (3) Pure hypercholesterolemia: Code(s): E78.00 - Pure hypercholesterolemia, unspecified Plan: Continue low-cholesterol diet. (4) Cough: Code(s): R05.9 - Cough, unspecified Qualifiers: Cough type: subacute Qualified Code(s): R05.2 - Subacute cough Plan: Continue monitor in the cough. If it persists then we will consider a pulmonology referral. Coding Level of Care Code Est Pt Level 4 (48991) Diagnoses Essential hypertension I10 Hypovitaminosis D E55.9 Pure hypercholesterolemia E78.00 Subacute cough R05.2 Cough type: subacute Time Spent (min) 20
== END 2023-08-28 08:31 | disposition home or self-care (01) ==
PROVIDERS: PCP Internal Medicine; Visit Provider Internal Medicine
DX: I10 Essential (primary) hypertension (principal); E55.9 Vitamin D deficiency, unspecified; E78.00 Pure hypercholesterolemia, unspecified; R05.2 Subacute cough
CPT/HCPCS: 99214

== ENCOUNTER 2023-12-08 06:14 | Day surgery (SDC) | payer OTHER, SELFPAY ==
[2023-12-06 09:55] VITALS: BMI 32.2
--- NOTE | 2023-12-06 13:11 | HO.ANESPROP2 ---
Documented by User: Chen Granger NP 12/06/23 13:11 HPI - Anesthesia Eval Consult details Narrative: 48yo F for Colonoscopy PMFSH Active Problems Active Problems: All Active Problems (Updated 12/06/23 @ 09:48 by Stacey Nye RN) Asthma exacerbation (Acute) Colon polyp (Acute) Left arm pain (Acute) Polyarthralgia (Acute) Fibroids (Acute) Ovarian cyst, complex (Acute) Bulky or enlarged uterus (Acute) Hx of abnormal cervical Pap smear (Acute) Well woman exam with routine gynecological exam (Acute) Class 1 obesity with body mass index (BMI) of 31.0 to 31.9 in adult (Acute) Hypovitaminosis D (Acute) Pure hypercholesterolemia (Acute) Screening for cervical cancer (Acute) Shortness of breath (Acute) Cough (Acute) Post-COVID syndrome (Acute) Family history of genetic disorder (Acute) Essential hypertension (Acute) Left leg pain (Acute) Physical exam (Acute) Elevated blood pressure reading without diagnosis of hypertension (Acute) Class 1 obesity with body mass index (BMI) of 31.0 to 31.9 in adult (Acute) Past Medical History Medical History HTN (hypertension) Asthma Family History Family History Mother Lung cancer Father Hypertension Maternal Aunt Breast cancer, Onset Age: 49 Paternal Grandfather Lung cancer Surgical History Surgical History H/O colonoscopy Social History Social History Housing: House Alcohol intake: former Patient Tobacco Use Status: Former Tobacco user Tobacco use type: Cigarette e-Cigarette/Vaping Use: Never Used Second Hand Smoke Exposure: No service: No Current occupational status: employed Current occupational exposures/hazards: No Cognitive needs: No Hearing needs: No Vision needs: No Meds Allergies Allergy/AdvReac Type Severity Reaction Status Date / Time azithromycin Allergy Mild Hives Verified 12/08/23 07:23 Penicillins Allergy Mild Hives Verified 12/08/23 07:23 Home Medications Medication Instructions Recorded Confirmed Last Taken Type cholecalciferol (vitamin D3) 25 50 mcg PO DAILY 12/06/23 12/08/23 Unknown History mcg (1,000 unit) capsule cyanocobalamin (vitamin B-12) 50 100 mcg PO DAILY 12/06/23 12/08/23 Unknown History mcg lozenges (Vitamin B-12) Exam Height,Weight and Vital Signs: Height 5 ft 2 in Weight 79.832 kg Assessment and Plan Assessment Anesthesia Assessment: Chart Reviewed Documented by User: Samanta Gillette MD 12/08/23 07:47 [facility] Past Medical History Medical History HTN (hypertension) Asthma Family History Family History Mother Lung cancer Father Hypertension Maternal Aunt Breast cancer, Onset Age: 49 Paternal Grandfather Lung cancer Surgical History Surgical History H/O colonoscopy History of Problems with Anesthesia: No Social History Social History Housing: House Alcohol intake: former Patient Tobacco Use Status: Former Tobacco user Tobacco use type: Cigarette e-Cigarette/Vaping Use: Never Used Second Hand Smoke Exposure: No service: No Current occupational status: employed Current occupational exposures/hazards: No Cognitive needs: No Hearing needs: No Vision needs: No Meds Allergies Allergy/AdvReac Type Severity Reaction Status Date / Time azithromycin Allergy Mild Hives Verified 12/08/23 07:23 Penicillins Allergy Mild Hives Verified 12/08/23 07:23 Home Medications Medication Instructions Recorded Confirmed Last Taken Type cholecalciferol (vitamin D3) 25 50 mcg PO DAILY 12/06/23 12/08/23 Unknown History mcg (1,000 unit) capsule cyanocobalamin (vitamin B-12) 50 100 mcg PO DAILY 12/06/23 12/08/23 Unknown History mcg lozenges (Vitamin B-12) Exam Airway Mallampati Class: II TM Dist: >3cm Neck ROM: Full Loose/Missing/Broken Teeth: No Heart: RRR Lungs: CTA Assessment and Plan Final Anesthetic Review History of Problems with Anesthesia: No NPO: Yes ASA Class: II Final Preanesthetic Review: Meds/Allgs Chart Reviewed, Consent Obtained/Reviewed and Anes Risks/Benef Reviewed Patient Risk: Low Procedure Risk: Low Anesthetic Plan Anesthetic Plan: MAC: Disposition: Standard PACU
[2023-12-08 06:51] VITALS: BMI 33.5
[2023-12-08 07:05] VITALS: BP 153/88; PULSE 74; RESP 16; TEMP 36.9; O2SAT 100
[2023-12-08 07:18] LABS: UPreg QC Valid YES; Urine Pregnancy NEGATIVE (NEGATIVE)
[2023-12-08] MEDS: Lactated Ringers 1,000 ML 100 ML IVCONT (07:22)
--- NOTE | 2023-12-08 07:26 | P.HPSUR_ITS ---
Pre-Procedural Eval Section A - 24 Hr Update-Section A only Date of Service: 12/08/23 Section B - Complete if H&P > 30 days Chief Complaint: Encounter for screening for malignant neoplasm of Details of Present Illness: see H*P no changes Relevant Family History (Specify if Yes): No Relevant Social History: None Present Medications: see Short Stay Collaborative assessment Medical History: No relevant PMH History of Previous Operations: No relevant previous surgery Allergies: Allergies Allergy/AdvReac Type Severity Reaction Status Date / Time azithromycin Allergy Mild Hives Verified 12/08/23 07:23 Penicillins Allergy Mild Hives Verified 12/08/23 07:23 Review of Systems Sugical H&P ROS: Negative: Constitution, Cardiovascular, Respiratory, Neurological, Psychiatric, Hem-Onc, Allergic/Immunologic, Gastrointestinal, Genitourinary, Musculoskeletal, Integumentary, Endocrine and Eyes/Ears/Nose/Throat Exam Surgical H&P Exam: Normal: HEENT, Normal: Heart, Normal: Lungs, Normal: Extr emities, Normal: Abdomen, Normal: Skin and Normal: Neurological Plan Diagnosis/Plan: Unchanged I have reviewed the history and physical and performed a pertinent physical examination on my patient. No changes have occurred unless specified. Time Spent With Patient Time: Total time managing care of this patient today ____ minutes.
[2023-12-08 08:10] VITALS: BP 107/58; PULSE 70; RESP 20; TEMP 36.2; O2SAT 98
[2023-12-08 08:25] VITALS: BP 121/77; PULSE 59; RESP 16; TEMP 36.2; O2SAT 100
--- NOTE | 2023-12-08 08:27 | OP_ITS ---
DATE OF SERVICE: 12/08/2023 SURGEON: Jaydon Shields MD INDICATIONS: Colon cancer screening and prior history of adenomatous colon polyps. PREOPERATIVE DIAGNOSIS: POSTOPERATIVE DIAGNOSIS: PROCEDURE PERFORMED: Colonoscopy to the terminal ileum with biopsy. ESTIMATED BLOOD LOSS: COMPLICATIONS: ANESTHESIA: Monitored anesthesia care. ASSISTANTS: SPECIMENS: DESCRIPTION OF PROCEDURE: A history and physical was performed. The risks and benefits of the procedure were explained to the patient. Informed consent was obtained. The patient was placed in the left lateral decubitus position. A digital rectal exam was performed and was found to be normal. The Olympus pediatric video colonoscope was introduced into the rectum and advanced to the cecum without difficulty. The cecum was identified by transillumination, palpation, and identification of the ileocecal valve. Examination was performed. The scope was removed. She tolerated the procedure well and was taken to recovery area in stable condition. FINDINGS: The terminal ileum was examined and appeared normal. The visualized colonic mucosa was within normal limits without evidence of masses or ulcers. A single polyp was identified and removed with biopsy forceps. This measured less than 5 mm and was located at 65 cm. No other polyps were identified. There was mild sigmoid diverticulosis. There were small hemorrhoids on retroflexed examination. IMPRESSION: Colon polyp. RECOMMENDATION: Follow up the biopsy results. MD TIFFANI De lValle/RONAL / [id number]
== END 2023-12-08 09:01 | disposition home or self-care (01) ==
PROVIDERS: Nurse Practitioner; PCP Internal Medicine; Visit Provider Internal Medicine Gastroenterology
PROC: 0DJD8ZZ Inspection of Lower Intestinal Tract, Via Natural or Artificial Opening Endoscopic (ICD-10-PCS; CPT 45378; principal; 2023-12-08 07:30)
DX: Z12.11 Encounter for screening for malignant neoplasm of colon (principal); Z86.010 Personal history of colon polyps; K63.5 Polyp of colon; K57.30 Diverticulosis of large intestine without perforation or abscess without bleeding; K64.8 Other hemorrhoids; I10 Essential (primary) hypertension; Z87.891 Personal history of nicotine dependence; Z79.899 Other long term (current) drug therapy; Z88.0 Allergy status to penicillin
CPT/HCPCS: 45380; 81025; 88305; J2704

== ENCOUNTER 2024-07-23 07:08 | Outpatient (AMB) | payer OTHER, SELFPAY ==
--- NOTE | 2024-07-23 07:34 | A.OFFPC_ITS ---
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 Accompanied by: Self / Same As Patient Allergies azithromycin Allergy (Mild, Verified 07/23/24 07:40) Hives Penicillins Allergy (Mild, Verified 07/23/24 07:40) Hives Medication List - Last Reconciled 07/23/24 by Zulema Puentes MD cholecalciferol (vitamin D3) (Vitamin D3) TAKE 1 TABLET BY MOUTH EVERY DAY cyanocobalamin (vitamin B-12) (Vitamin B-12) 100 mcg PO DAILY doxycycline hyclate 100 mg PO BID 28 days Tobacco use date assessed: 07/23/24 Dental Screening Dental Screen Date: 07/23/24 Did you have a dental visit in the last 12 months?: Yes Did you have a dental problem in the last 6 months where you did not have access to dental care?: No Was dental information given to patient?: Patient has dentist HPI HPI Comments History of Present Illness Details This is a 48-year-old female that comes for her physical exam. Mammogram done last year was normal and next mammogram is scheduled for this month. Colonoscopy done 2023 showing tubular adenoma and next colonoscopy should be in 5 years. Pap smear done 2022 was normal. She complains of fatigue and tiredness. She is also obese with a BMI of 33.3 and has been doing diet and exercise with no significant improvement. [facility] Medical History (Updated 07/23/24 @ 09:51 by Zulema Puentes MD) HTN (hypertension) Asthma Surgical History H/O colonoscopy Family History Mother Lung cancer Father Hypertension Maternal Aunt Breast cancer, Onset Age: 49 Paternal Grandfather Lung cancer Social History Housing: House Alcohol intake: former Patient Tobacco Use Status: Former Tobacco user Tobacco use type: Cigarette e-Cigarette/Vaping Use: Never Used Second Hand Smoke Exposure: No service: No Current occupational status: employed Current occupational exposures/hazards: No Cognitive needs: No Hearing needs: No Vision needs: No Female Reproductive History Menstrual Age of Menarche: 11 Questionnaire PHQ-9 Over the last 2 weeks, how often have you been bothered by any of the following problems? 1. Little interest or pleasure in doing things: not at all 2. Feeling down, depressed, or hopeless: not at all 3. Trouble falling or staying asleep, or sleeping too much: not at all 4. Feeling tired or having little energy: more than half the days 5. Poor appetite or overeating: more than half the days 6. Feeling bad about yourself - or that you are a failure or have let yourself or your family down: not at all 7. Trouble concentrating on things, such as reading the newspaper or watching television: not at all 8. Moving or speaking so slowly that other people could have noticed. Or the opposite - being so fidgety or restless that you have been moving around a lot more than usual: not at all 9. Thoughts that you would be better off or of hurting yourself in some way: not at all Total score: 4 Depression Screening Interpretation: Positive Depression Screening Follow-up: Existing condition and Follow-up Visit Requested Depression Screening Done: Yes 09411 - PHQ-9 Billing: Yes Source: Developed by Drs. Arik Marcano, Abeba Greene, Richard Power and colleagues, with an educational dian from [employer]. Thrive Questionnaire Date Thrive assessed: 07/23/24 I am a: Patient What is your living situation today?: I have a steady place to live Within the past 12 months, did the food you bought not last and you didn't have the money to get more?: Never true Within the past 12 months, did you worry whether your food would run out before you got money to buy more?: Never true Do you have trouble paying for medicines?: No Do you have trouble getting transportation to medical appointments?: No Do you have trouble paying your heating and electricity bill?: No Do you have trouble taking care of your child, family member or friend?: No Do you have trouble with day-to-day activities such as bathing, preparing meals, shopping, managing finances, etc.?: No Are you currently unemployed and looking for a job?: No Are you interested in more education?: No Please select the resources that you would like help with: None Currently or been in a relationship where the following occur: No concerns reported THRIVE Score: 0 AUDIT C Alcohol Use Questionnaire (AUDIT-C) 1. How often do you have a drink containing alcohol?: Never Total Score: 0 ROEL-7 AMB Questionnaire ROEL-7 Date ROEL - 7 assessed: 07/23/24 Feeling nervous, anxious, or on edge: 1 = Several days Not being able to stop or control worryin = Not at all Worrying too much about different things: 0 = Not at all Trouble relaxin = Several days Being so restless that it is hard to sit still: 0 = Not at all Becoming easily annoyed or irritable: 0 = Not at all Feeling afraid as if something awful might happen: 0 = Not at all Total ROEL-7 score (0-4 normal; 5-9 mild; 10-14 moderate; 15-21 severe): 2 Source: Developed by Drs. Arik Marcano, Abeba Greene, Richard Power and colleagues, with an educational dian from [employer]. ROEL-7 Assessment Billing ROEL-7 Assessment Tool: ROEL-7 Assessment 78949 Review of Systems Const All systems reviewed & are unremarkable except as noted in HPI and below Reports fatigue Card Denies chest pain at rest, Denies chest pain with activity, Denies edema, Denies irregular heart rhythm, Denies claudication, Denies dyspnea, Denies dyspnea on exertion, Denies orthopnea, Denies paroxysmal nocturnal dyspnea and Denies slow heart rate Resp Denies cough, Denies dyspnea and Denies dyspnea on exertion GI Denies abdominal pain, Denies change in bowel habits, Denies excessive flatus, Denies nausea and Denies vomiting Denies urinary incontinence, Denies urinary hesitancy and Denies urinary urgency Musc Denies abnormal gait, Denies atrophy, Denies deformity and Denies limited range of motion Skin/Breast Denies bleeding lesions, Denies changing lesions and Denies rash Neuro Denies abnormal gait, Denies behavioral changes and Denies lack of coordination Psych Denies behavioral changes Endo Reports fatigue Physical exam (Primary Care) Vital Signs: Last Vital Signs BP 132/76 07/23/24 07:35 BMI result Body Mass Index 33.3 BMI Assessment/Plan discussion: High BMI High, discussed plan: lifestyle, weight reduction, dietary and physical activity Tobacco/Smoking Status: Tobacco use Status Tobacco use date assessed 07/23/24 07/23/24 07:44 Patient Tobacco Use Status Former Tobacco user 07/23/24 07:38 Tobacco use type Cigarette 07/23/24 07:38 e-Cigarette/Vaping Use Never Used 07/23/24 07:38 PHQ-9: PHQ-9 Score PHQ-9: Total score 4 07/23/24 07:40 Depression Screening Interpretation: Positive Depression Screening Follow-up: Existing condition and Follow-up Visit Requested Thrive Assessment: Date of Thrive Assessment Date Thrive assessed 07/23/24 07/23/24 07:44 Currently or been in a relationship where the following occur: No concerns reported HENMT Head: Yes normal to inspection, Yes normocephalic and Yes atraumatic Ears: external ears normal Eyes General: appearance normal, both eyes and all related structures Eyelids: Yes eyelids normal Conjunctivae: conjunctivae normal Neck Neck: Yes normal visual inspection and Yes supple Resp Effort & Inspection: normal respiratory effort Auscultation: clear to auscultation bilaterally Cardio Jugular venous distension: no JVD Rate: regular rate Rhythm: regular rhythm Heart sounds: S1 normal heart sound present and S2 normal heart sound present GI Inspection: Yes normal to inspection Palpation (GI): Soft to palpation and nontender Auscultation: normal bowel sounds Skin General skin exam: no rashes or lesions noted Neuro General: no focal motor deficits Extrem General: Yes full ROM Psych Appearance: grossly normal Office Procedures Flu Questionnaire Does the patient have a severe egg allergy?: No Immunizations Fluarix Triv [id number] (PF) 45 mcg (15 mcg x 3)/0.5 mL IM syringe Performing Provider: Zulema Puentes MD [facility] Documented (not given) by: SYED Minor on 07/23/24 07:48 Reason Not Given: Patient Refused Coding Level of Care Code Est Pt Level 3 (76361) Est Pt Prev Care 40-64y(50287) Diagnoses Physical exam Z00.00 Class 1 obesity due to excess calories without serious comorbidity with body mass index (BMI) of 33.0 to 33.9 in adult E66.811; E66.09; Z68.33 Obesity type: due to excess calories Serious obesity comorbidity presence: without serious comorbidity Fatigue, unspecified type R53.83 Fatigue type: unspecified Additional Codes ROEL-7 Assessment Billing - ROEL-7 Assessment Tool: OREL-7 Assessment 38393 ([id number]) Time Spent (min) 35 Assessment & Plan Assessment & Plan (1) Physical exam: Code(s): Z00.00 - Encounter for general adult medical examination without abnormal findings Category: Medical Plan: Repeat in a year. (2) Class 1 obesity with body mass index (BMI) of 33.0 to 33.9 in adult: Code(s): E66.811 - Obesity, class 1; Z68.33 - Body mass index [BMI] 33.0-33.9, adult Category: Medical Qualifiers: Obesity type: due to excess calories Serious obesity comorbidity presence: without serious comorbidity Qualified Code(s): E66.811 - Obesity, class 1; E66.09 - Other obesity due to excess calories; Z68.33 - Body mass index [BMI] 33.0-33.9, adult Plan: Advised to follow diet and exercise. Start Wegovy. Side effects were discussed such as nausea, vomiting, diarrhea and abdominal pain. She is aware that this medication can cause pancreatitis and thyroid nodules. (3) Fatigue: Code(s): R53.83 - Other fatigue Category: Medical Qualifiers: Fatigue type: unspecified Qualified Code(s): R53.83 - Other fatigue Plan: Labs ordered. Orders: Orders Lipid Panel Today E78.5 - Hyperlipidemia, unspecified, Z00.00 - Encounter for general adult medical examination without abnormal findings Comprehensive Willet. Panel Fast Today Z00.00 - Encounter for general adult medical examination without abnormal findings Influenza [id number] Immunization Today Z23 - Encounter for immunization Vitamin B12 and Folate Today E53.8 - Deficiency of other specified B group vitamins Vitamin D 25-OH Total Today E55.9 - Vitamin D deficiency, unspecified Complete Blood Count Auto Diff Today R53.83 - Other fatigue IRON PROFILE Today R53.83 - Other fatigue Thyroid Stimulating Hormone Today R53.83 - Other fatigue Referrals Endocrinology Referral E66.811 - Obesity, class 1, Z68.33 - Body mass index [BMI] 33.0-33.9, adult Medications: New semaglutide (weight loss) (Hermes) administer weeks 1 through 4 of therapy 0.25 mg (0.5 mL) subcut QWEEK 4 weeks 2 mL 0RF E66.811 - Obesity, class 1, E78.00 - Pure hypercholesterolemia, unspecified, R03.0 - Elevated blood-pressure reading, without diagnosis of hypertension, Z68.33 - Body mass index [BMI] 33.0-33.9, adult
[2024-07-23 07:35] VITALS: BP 132/76; BMI 33.3
== END 2024-07-23 07:59 | disposition home or self-care (01) ==
LOC: HO.HMCH 07:09
PROVIDERS: PCP Internal Medicine; Visit Provider Internal Medicine
DX: Z00.00 Encounter for general adult medical examination without abnormal findings (principal); E66.811 Obesity, class 1; Z68.33 Body mass index [BMI] 33.0-33.9, adult; R53.83 Other fatigue

== ENCOUNTER → 2024-07-23 07:08 | Outpatient (BNVA) | payer OTHER, SELFPAY | PROVIDERS: PCP Internal Medicine; Visit Provider Internal Medicine | DX: Z00.00 Encounter for general adult medical examination without abnormal findings (principal); E66.811 Obesity, class 1; Z68.33 Body mass index [BMI] 33.0-33.9, adult; R53.83 Other fatigue; Z28.21 Immunization not carried out because of patient refusal | CPT/HCPCS: 96127 ==

== ENCOUNTER 2024-07-27 07:00 | Outpatient (REF) | payer OTHER, SELFPAY ==
[2024-07-27 07:33] LABS: MANUAL DIFF FLAG NO
[2024-07-27 08:04] LABS: Basophils Absolute Auto 0.1 X10*3/uL (0.0-0.2); Eosinophils Absolute Auto 0.1 X10*3/uL (0.0-0.4); Eosinophils Percent Auto 1.5 % (0-4); Hemoglobin 12.6 g/dl (12.0-16.0); Imm Gran Abs Auto 0.02 X10*3/uL (0.00-0.03); Imm Gran Pct Auto 0.3 % (0.0-0.4); Lymphocytes Absolute Auto 1.1 X10*3/uL (1.2-4.9); Lymphocytes Percent Auto 16.6 % (20-40); Mean Corpuscular HGB Conc 31.5 g/dl (31.0-35.0); Mean Corpuscular Hemoglobin 26.9 pg (27.0-33.0); Mean Corpuscular Volume 85.3 fL (80.0-98.0); Monocytes Absolute Auto 0.5 X10*3/uL (0.1-1.2); Monocytes Percent Auto 7.6 % (2-11); Neutrophils Absolute Auto 4.9 x10*3/uL (2.0-8.3); Platelet Count 295 X10*3/uL (160-400); Red Blood Count 4.69 X10*6/uL (4.20-5.50); Red Cell Distribution Width 14.2 % (11.0-16.0); White Blood Count 6.7 X10*3/uL (4.8-10.8)
[2024-07-27 08:24] LABS: Alanine Aminotransferase 18 U/L (0-31); Alkaline Phosphatase 49 U/L (39-117); Anion Gap 17 (12-20); Aspartate Amino Transferase 22 U/L (5-31); Bilirubin Total 0.6 mg/dL (0.0-1.0); Blood Urea Nitrogen 16 mg/dL (9-16); Calcium 9.2 mg/dL (8.4-10.2); Carbon Dioxide 17 mmol/L (22-29); Chloride 112 mmol/L (96-108); Cholesterol 194 mg/dL (<200); Estimated Glomerular Filt Rate > 60; Folate 8.4 ng/mL (> or = 4.0); Glucose Fasting 93 mg/dL (60-99); HDL Cholesterol 70 mg/dL (>40); Iron 54 mcg/dL (30-160); LDL Cholesterol Calculated 115 mg/dL (<100); Percent Iron Saturation 16 % (15-50); Potassium 4.6 mmol/L (3.3-5.1); Sodium 141 mmol/L (135-145); Thyroid Stimulating Hormone 1.27 uIU/mL (0.32-4.0); Total Iron Binding Capacity 339 mcg/dL (228-428); Total Protein 6.7 g/dL (6.5-8.0); Triglycerides 46 mg/dL (<150); Unsaturated Iron Binding 285 ug/dL; Vitamin B12 649 pg/mL (200-900); Vitamin D 25-OH Total 26.1 ng/mL (>30)
== END 2024-07-27 07:01 | disposition home or self-care (01) ==
LOC: HO.LAB 07:00
PROVIDERS: PCP Internal Medicine; Visit Provider Internal Medicine
DX: Z00.00 Encounter for general adult medical examination without abnormal findings (principal); R53.83 Other fatigue; E78.5 Hyperlipidemia, unspecified; E53.8 Deficiency of other specified B group vitamins; E55.9 Vitamin D deficiency, unspecified
CPT/HCPCS: 36415; 80053; 80061; 82306; 82607; 82746; 83540; 84443; 85025

== ENCOUNTER 2024-08-12 07:19 | Outpatient (REF) | payer OTHER, SELFPAY ==
--- NOTE | ~2024-08-12 | MM_ITS ---
EXAMINATION: MM SCREENING DIGITAL BREAST TOMOSYNTHESIS, BILATERAL CLINICAL INFORMATION: Screening. Asymptomatic. COMPARISON: Mammography: Comparison is made with available priors TECHNIQUE: Digital breast mammography with tomosynthesis is performed in both the craniocaudal and mediolateral oblique views along with computer-aided detection (CAD). FINDINGS: There are scattered areas of fibroglandular density (ACR BI-RADS breast composition Category b). There are no significant masses, abnormal calcifications, or other abnormalities. MM/MM tomosynthesis screening BI IMPRESSION: No mammographic evidence of malignancy. ASSESSMENT: BI-RADS BI-RADS 1 - Negative RECOMMENDATION: Routine annual mammography screening. 1 year F/U This examination should not preclude the clinical evaluation of a suspicious palpable abnormality. This patient's information was entered into a reminder system with a target due date for their next mammogram. Electronically signed by: Amarilys Suggs DO 08/21/2024 12:22 PM [facility]
== END 2024-08-12 07:20 | disposition home or self-care (01) ==
LOC: HO.MAMMO 07:19
PROVIDERS: PCP Internal Medicine; Visit Provider Internal Medicine
DX: Z12.31 Encounter for screening mammogram for malignant neoplasm of breast (principal)
CPT/HCPCS: 77063; 77067

== ENCOUNTER → 2024-08-12 07:30 | Outpatient (BNV) | payer OTHER, SELFPAY | PROVIDERS: PCP Internal Medicine; Visit Provider Internal Medicine | DX: Z12.31 Encounter for screening mammogram for malignant neoplasm of breast (principal) | CPT/HCPCS: 77063; 77067 ==